=== PATIENT | male | born 1965 | race Caucasian/White ===

== ENCOUNTER 2017-03-04 15:17 | Emergency (ER) | payer MEDICARE, OTHER ==
[~2017-03-04] VITALS: Ht 167.6 cm; Wt 70.3 kg
[2017-03-04 15:17] VITALS: BP 129/72
[~2017-03-04 15:17] MED LIST: ARIP10TA15 PO; BUPR75TA3 PO; CLON2TAB3 PO; HYDR1TAB4 PO
--- NOTE | 2017-03-04 17:12 | NUR ---
CALLED [facility] TO READ XRAY
--- NOTE | 2017-03-04 17:15 | NUR ---
Patient eloped from facility. ER MD notified.
== END 2017-03-04 17:15 | disposition left against medical advice (07) ==
LOC: ER 15:19
DX: M25.561 Pain in right knee (principal); F17.200 Nicotine dependence, unspecified, uncomplicated; F32.9 Major depressive disorder, single episode, unspecified; V11.4XXA Pedal cycle driver injured in collision with other pedal cycle in traffic accident, initial encounter; Y93.I9 Activity, other involving external motion; Y92.488 Other paved roadways as the place of occurrence of the external cause; Y99.8 Other external cause status
CPT/HCPCS: 73564; 99284; A4606; Z7610

== ENCOUNTER 2017-10-03 00:39 | Emergency (ER) | payer OTHER ==
[~2017-10-03 00:39] MED LIST changes: -ARIP10TA15 PO; +ARIP10TA9 PO
--- NOTE | 2017-10-03 01:47 | NUR ---
CALLED FOR TRIAGE; NOT IN LOBBY
== END 2017-10-03 01:51 | disposition left against medical advice (07) ==
LOC: ER 00:53
DX: Z53.21 Procedure and treatment not carried out due to patient leaving prior to being seen by health care provider (principal)
CPT/HCPCS: A4606; Z7610

== ENCOUNTER 2017-10-03 04:18 | Emergency (ER) | payer OTHER ==
[~2017-10-03] VITALS: Ht 172.7 cm; Wt 74.8 kg
[2017-10-03 04:59] VITALS: BP 152/80
--- NOTE | 2017-10-03 07:24 | NUR ---
CALLED TO ED T&R ROOM x 3 TIMES, NO RESPONSE.
[2017-10-03] MEDS ORDERED: IBUPROFEN 600 MG TABLET PO ONE ×2 (08:30→08:43)
== END 2017-10-03 08:56 | disposition home or self-care (01) ==
LOC: ER 04:21
DX: S60.222A Contusion of left hand, initial encounter (principal); F32.9 Major depressive disorder, single episode, unspecified; F17.210 Nicotine dependence, cigarettes, uncomplicated; V87.8XXA Person injured in other specified noncollision transport accidents involving motor vehicle (traffic), initial encounter; Y93.55 Activity, bike riding; Y92.89 Other specified places as the place of occurrence of the external cause; Y99.8 Other external cause status
CPT/HCPCS: 73130 ×2; 99284; A4606; Z7610